=== PATIENT | female | born 1980 | race African-American/Black ===

== ENCOUNTER 2023-04-27 12:20 | Emergency (ER) | payer OTHER ==
[~2023-04-27] VITALS: Ht 157.5 cm; Wt 64.4 kg
[2023-04-27] MEDS ORDERED: PEPCID AC20 MG PO (12:24)
[2023-04-27 13:22] LABS: HEMATOCRIT 41.6 % (36.0-45.00); HEMOGLOBIN 13.8 g/dL (12.0-15.00); MEAN CELL VOLUME 91.3 fL (80.00-100.00); MEAN CORPUSCULAR HEMOGLOBIN 30.4 pg (27.00-32.0); MEAN CORPUSCULAR HGB CONC 33.3 g/dl (32.0-36.0); PLATELET COUNT 289 K/uL (150-450); RED BLOOD COUNT 4.55 M/uL (4.00-6.00); RED CELL DISTRIBUTION WIDTH 12.9 % (11.5-14.5)
[2023-04-27 13:48] LABS: CALCIUM 9.1 mg/dL (8.5-10.1); CREATININE SERUM 0.68 mg/dL (0.55-1.02); GFR 93.99; POTASSIUM 3.76 mEq/L (3.5-5.1)
[2023-04-27] MEDS ORDERED: CIPRO500 MG PO (17:38)
[2023-04-27] MEDS ORDERED: DICY20TA PO (17:38)
[2023-04-27] MEDS ORDERED: INTESTINEX680 M1 PO (17:38)
[2023-04-27] MEDS ORDERED: PEPCID20 MG PO (17:38)
== END 2023-04-27 19:40 | disposition home or self-care (01) ==
LOC: ER 12:20
PROVIDERS: Emergency Medicine
DX: K52.9 Noninfective gastroenteritis and colitis, unspecified (principal); Z88.8 Allergy status to other drugs, medicaments and biological substances; Z91.018 Allergy to other foods; N83.202 Unspecified ovarian cyst, left side; R19.09 Other intra-abdominal and pelvic swelling, mass and lump